=== PATIENT | male | born 1940 | race Caucasian/White ===

== ENCOUNTER 2016-06-27 12:57 | Inpatient (IN) | payer MEDICARE, OTHER ==
--- NOTE | ~2016-06-27 | OP ---
Record Of Operation [facility] [address] [place]. [address] NAME: SOM KAISER : 40 STATUS : ADM IN [facility]#: [id number] AGE: 75 ADM/REG DATE : 06/27/16 MR#: [id number] REPORT SERV DATE: 06/30/16 DICTATED BY: NEGIN TREJO DATE: 06/30/16 REPORT STATUS : Draft TRANSCRIBED BY: MODL DATE: 06/30/16 DATE OF PROCEDURE: 06/30/2016 PREOPERATIVE DIAGNOSIS: 1. Large pericardial effusion with tamponade physiology. 2. History of laryngeal carcinoma with recurrence. 3. New onset paroxysmal atrial fibrillation. PROCEDURE PERFORMED: Subxiphoid pericardial window with drainage of effusion. SURGEON: Negin Trejo M.D. CHIEF ENGINEERING DIVISION: Lubna Borden. ANESTHESIA: General. INDICATIONS: This is a 75-year-old gentleman with a history of oral cancer who has had 2 resections and radiation and chemotherapy with recurrence. He began having weakness and shortness of breath with ambulation. He started to have some pink-tinged sputum and was referred to [place] initially at the evaluation. He was admitted at that time and recently discharged to home. He was diagnosed with a pericardial effusion. Over the last several days, he has had increasing shortness of breath and was admitted to [facility] with cough, productive sputum and shortness of breath. CT scan performed last night demonstrated bilateral lower lobe pneumonia with large pericardial effusion. He underwent an echocardiogram that demonstrated a large pericardial effusion that was circumferential and had evidence of possible tamponade physiology. We were asked to see the patient for possible drainage of pericardial effusion. We discussed this operation with the patient and his family and they wished to proceed. FINDINGS AT OPERATION: 1. 380 mL of reddish but serous fluid around the heart. This was sent for cytology and cultures. 2. Given this is actually on the pericardium and surface of the heart. Pathologic specimens include pericardium and fluid for cytology and cultures. DESCRIPTION OF PROCEDURE: The patient was brought to the operating suite. General anesthesia was induced. Airway was secured with an endotracheal tube. Lines secured by Anesthesia. The patient's chest and abdomen were prepped with Hibiclens and ChloraPrep and draped with Ioban and sterile sheets. Then, the xiphoid area was anesthetized with TAP solution and an incision made directly over the xiphoid onto the linea alba for several centimeters. This was carried through the subcutaneous tissue and the linea alba divided in the midline up to the level of the costal margin. Left costal margin was elevated and we freed the subcutaneous tissue underneath the sternum and identified the pericardium. Pericardium was opened and 380 mL of serous mildly bloody fluid were obtained and this was sent for cultures and cytology. There was a fibrinous exudate on the surface of the heart Record Of Operation [address] [place]. [address] NAME: SOM KAISER : 40 STATUS : ADM IN PAT#: [id number] AGE: 75 ADM/REG DATE : 06/27/16 MR#: [id number] REPORT SERV DATE: 06/30/16 DICTATED BY: NEGIN TREJO DATE: 06/30/16 REPORT STATUS : Draft TRANSCRIBED BY: KHANG DATE: 06/30/16 and thickened pericardium. We then excised a large swath of the anterior pericardium. This was sent for pathology. Hemostasis was then assured and the pericardial space irrigated copiously with saline. A 24 Turkmen Robert drain was placed in the pericardial space posteriorly and brought out through a separate stab incision. Once hemostasis was assured, the midline incision was closed in layers of absorbable suture and skin closed in a subcuticular fashion. The patient tolerated the procedure well. There were no complications. Sponge and needle counts were correct. DISPOSITION: The patient was extubated and taken to the recovery room in stable condition. DOMENIC/KHANG Negin Trejo M.D. / [id number] CC: Nilesh Whittington M.D.
--- NOTE | ~2016-06-27 | HP ---
History And Physical [id number] [facility] [place]. [address] NAME: SOM PEREZ : 40 STATUS : ADM IN [facility]#: [id number] AGE: 75 ADM/REG DATE : 06/27/16 MR#: [id number] REPORT SERV DATE: 06/28/16 DICTATED BY: NEGIN GARCES DATE: 06/27/16 REPORT STATUS : Draft TRANSCRIBED BY: MODL DATE: 06/27/16 DATE OF ADMISSION: 06/27/2016 POINT OF ENTRY: [facility] Emergency Department. PRIMARY SHAKE BACKBOARD NOTCHER: Dr. Jin. PRIMARY FLY MAKER: Dr. Estrada. CHIEF COMPLAINT: Chest and back pain and weakness. HISTORY OF PRESENT ILLNESS: Mr. 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 Majority of history is obtained from the patient's family who was at bedside. Family states that the patient recently underwent recurrent resection of squamous cell cancer of the tongue at [facility] on 04/[address] Jin. There are no current plans for radiation therapy or chemotherapy, as he currently has poor functional status. They also report he was recently admitted to [facility] approximately two weeks ago for bilateral lower lobe pneumonia. Family states that he was doing well. Yesterday, he went to [place] to see his radiation oncologist and was able to walk around [place] without significant difficulty. Also, worked with Physical Therapy yesterday. Upon awakening today, the family noticed that the patient was extremely weak with also having increased cough and sputum production above his baseline and was complaining of some back and chest pain. He denies any fevers, night sweats, or chills. The patient recently saw Dr. Estrada and echocardiogram done for what sounds like a diagnosis of pericardial effusion while at [place]. Given that he was complaining of chest and back pain, they decided to come to [facility]. Initial evaluation in the emergency department is notable for a fever of 99.6, he was mildly tachycardic with a heart rate in the low 100s. [place] [address]. Chest x-ray was clear; however, CT of the chest was negative for PE, but does show bilateral lower lobe pneumonia as well as a 1.9 cm pericardial effusion and evidence of concern for mediastinitis. Labs were also notable for sodium of 125, potassium 5.3, but troponin was negative as was EKG. He was subsequently admitted to the Hospitalist Service for further evaluation and management. The patient also reports he was recently placed on Augmentin by his primary care physician on Wednesday for a white count of 16,000. At that time, he was not having any symptoms. Chest x-ray was done, but it was unremarkable and since starting Augmentin, the patient has also History And Physical [address] [place]. [address] NAME: SOM PEREZ : 40 STATUS : ADM IN [facility]#: [id number] AGE: 75 ADM/REG DATE : 06/27/16 MR#: [id number] REPORT SERV DATE: 06/28/16 DICTATED BY: NEGIN GARCES DATE: 06/27/16 REPORT STATUS : Draft TRANSCRIBED BY: KHANG DATE: 06/27/16 developed some diarrhea. COMPREHENSIVE REVIEW OF SYSTEMS: Otherwise negative unless listed in history present illness. PREVIOUS MEDICAL HISTORY: 1. Aggressive squamous cell carcinoma of the tongue, last known stage of stage II, status post resection as well as previous history of XRT. 2. Hypothyroidism. 3. Uiz-bhyoxfq-okvimhsff diabetes mellitus type 2. 4. Remote history of stroke. 5. Hyperlipidemia. 6. History of prostate cancer, status post brachytherapy. SURGICAL HISTORY: 1. Prostate brachytherapy. 2. Multiple excisions of squamous cell carcinoma of the tongue. 3. Right rotator cuff surgery. 4. Left elbow surgery. ALLERGIES: NO KNOWN DRUG ALLERGIES. HOME MEDICATIONS: 1. Augmentin 800 mg per tube b.i.d. 2. Aspirin 162 mg per tube q.6 hours p.r.n. 3. Klonopin 0.5 to 1 mg per tube b.i.d. 4. Plavix 75 mg per tube daily. 5. Pepcid 20 mg per tube b.i.d. 6. Fenofibrate 160 mg per tube q.h.s. 7. Neurontin 200 mg per tube b.i.d. 8. Mucinex 600 mg per tube q.12 p.r.n. 9. Levothyroxine 175 mcg per tube daily. 10.Metformin 1000 mg per tube b.i.d. 11.Multivitamin one tab per tube q.h.s. 12.Zofran 4 mg q.6 hours p.r.n. 13.Roxicodone 10 mg per tube q.6 hours p.r.n. 14.Paxil 10 mg per tube daily. 15.Aldactone 25 mg per tube daily. 16.Advil one tab q.h.s. p.r.n. 17.Silace 100 mg per tube b.i.d. 18.Ginseng one tab per tube daily. 19.Probiotic one tab per tube q.h.s. SOCIAL HISTORY: Denies any tobacco, alcohol, or illicits. Is a former smoker, quit greater than 40 years ago. FAMILY MEDICAL HISTORY: Mother with diabetes. Father with prostate cancer and coronary History And Physical [address] [address] NAME: SOM PEREZ : 40 STATUS : ADM IN PAT#: [id number] AGE: 75 ADM/REG DATE : 06/27/16 MR#: [id number] REPORT SERV DATE: 06/28/16 DICTATED BY: NEGIN GARCES DATE: 06/27/16 REPORT STATUS : Draft TRANSCRIBED BY: KHANG DATE: 06/27/16 artery disease. Siblings with colon cancer. LABS AND IMAGIN. White count 16.7, hemoglobin is 10.3, hematocrit is 30.9, platelet count 356. 2. Sodium is 125, potassium 5.3, chloride 91, carbon dioxide 30, BUN 35, creatinine 1.25, glucose is 191, calcium is 9.4, magnesium is 1.8. 3. Troponin less than 0.02. 4. Urinalysis, specific gravity is 1.016. No evidence of any infection. 5. Chest x-ray per my review shows no acute cardiopulmonary abnormality. 6. CT of the chest shows no PE, just shows some changes concerning for mediastinitis as well as bilateral lower lobe pneumonia and a 1.9 cm pericardial effusion. Of note, this is overnight virtual radiology read. Formal radiology report will need to be followed up in the morning. 7. EKG per my review shows sinus tachycardia with no evidence of any acute ischemic infarction. There are some mildly prominent T-waves V3 through V4. 8. The patient had an echocardiogram done on 06/26/2016, which showed ejection fraction 59% as well as some diastolic dysfunction, but report actually states no pericardial effusion at that time. PHYSICAL EXAMINATION: VITAL SIGNS: Temperature is 99.6 degrees Fahrenheit, pulse is 105, respirations 16, saturating 98% on room air, blood pressure 100/64. On recheck, blood pressure now 117/66, pulse of 114, saturating 95% on room air. GENERAL: The patient is awake, alert, in no acute distress, resting comfortably. He is a chronically ill-appearing elderly male. Multiple family members are at bedside. HEENT: Atraumatic and normocephalic. Slightly dry mucous membranes. Pupils are equal, round, reactive to light and accommodation. Extraocular eye movements intact. NECK: No jugular venous distention. No carotid bruits. CARDIAC: Tachycardic rate, regular rhythm. No murmurs, rubs, or gallops. Normal S1, S2. LUNGS: On room air in no respiratory distress. Does have some decreased breath sounds in the bases, but I do not appreciate any wheezes, rhonchi, or crackles. ABDOMEN: PEG tube is in place. No rebound, guarding, or rigidity. Hypoactive bowel sounds throughout. EXTREMITIES: Warm and well perfused. No cyanosis, clubbing, or edema. SKIN: Warm and dry. PSYCH: Affect appropriate. NEURO: Alert and oriented x3. Cranial nerves 2 through 12 grossly intact. Speech is dysarthric and muffled secondary to tongue surgery. Gait was not assessed. ASSESSMENT AND PLAN: Mr. Perez is a 75-year-old gentleman with history of squamous cell carcinoma of the tongue, status post resection with resulting oropharyngeal dysphagia requiring PEG tube, who presents to the emergency department today with reports of cough, sputum production, weakness, back and chest pain, and found to have evidence of bilateral lower lobe pneumonia. PROBLEM LIST: 1. Bilateral lower lobe pneumonia, concern for aspiration versus healthcare-associated History And Physical [address] [address] NAME: SOM PEREZ : 40 STATUS : ADM IN PAT#: [id number] AGE: 75 ADM/REG DATE : 06/27/16 MR#: [id number] REPORT SERV DATE: 06/28/16 DICTATED BY: NEGIN GARCES DATE: 06/27/16 REPORT STATUS : Draft TRANSCRIBED BY: MODYanely DATE: 06/27/16 pneumonia. 2. Sepsis. 3. Hyperkalemia. 4. Hyponatremia. 5. Acute kidney injury and dehydration. 6. Squamous cell carcinoma of the tongue. 7. Oropharyngeal dysphagia. 8. Diarrhea. 9. Concern for mediastinitis on CT scan. PLAN: 1. Bilateral lobe pneumonia. Given the patient's recent hospitalization and surgery as well as oropharyngeal dysphagia, he is at risk for either aspiration pneumonia versus HCAP. As such, we will treat with IV cefepime, vancomycin, and Flagyl. Follow up blood cultures. Try to obtain sputum culture as well as urinary antigens. Try to obtain records from [facility], as he was just hospitalized two weeks ago for what sounds to be very similar circumstances. 2. Sepsis. The patient meets criteria with leukocytosis as well as tachycardia. Lactic acid is pending as is procalcitonin. Follow up blood cultures. Aggressive IV fluid hydration and antibiotics. 3. Hyperkalemia. No acute T-wave changes at this time. We will continue to monitor. Holding the patient's Aldactone. Aggressive IV fluid hydration. We will order some calcium gluconate. We will hold off on Kayexalate given preexisting diarrhea. 4. Hyponatremia. It sounds as if the patient has some chronic hyponatremia in the past. He does receive free water flushes per tube, so he may be receiving too much free water. We will hold his free water flushes at least overnight. Provide IV fluid hydration with normal saline. Checking thyroid function studies as well as urine lytes for further workup. 5. Acute kidney injury and dehydration. Provide aggressive IV fluid hydration. Holding Aldactone. 6. Diarrhea. The patient has been on antibiotics recently. We will check C diff, PCR, as well stool culture and ova and parasite. 7. Oropharyngeal dysphagia. The patient is strict n.p.o. and receives everything by PEG tube. We will consult Nutrition for assistance with nutrition per PEG tube per family request. We will also consult Speech Therapy to better evaluate the patient's oropharyngeal dysphagia and aspiration risk. 8. Squamous cell carcinoma of the tongue. Try to obtain records from [facility] per Otolaryngology. 9. Concern for mediastinitis. We will consult Pulmonology for assistance to review CT imaging. The patient has not had any recent chemotherapy or radiation to the thorax. It is unclear as to what may be causing these changes. 10.DVT prophylaxis. Lovenox subcu. 11.Code status. The patient wished to be DNR/DNI. JCB/MODL History And Physical [address] [address] NAME: SOM PEREZ : 40 STATUS : ADM IN [facility]#: [id number] AGE: 75 ADM/REG DATE : 06/27/16 MR#: [id number] REPORT SERV DATE: 06/28/16 DICTATED BY: NEGIN GARCES DATE: 06/27/16 REPORT STATUS : Draft TRANSCRIBED BY: KHANG DATE: 06/27/16 Negin Garces MD / [id number] CC: Esther Claire M.D. Aarti Paul M.D. Joseph Powers, M.D.
--- NOTE | ~2016-06-27 | CN ---
Consultation Report [facility] [address] [place]. [address] NAME: SOM PEREZ : 40 STATUS : ADM IN [facility]#: [id number] AGE: 75 ADM/REG DATE : 06/27/16 MR#: [id number] REPORT SERV DATE: 06/29/16 DICTATED BY: ALMA EASON DATE: 06/28/16 REPORT STATUS : Draft TRANSCRIBED BY: MODYanely DATE: 06/28/16 CARDIOLOGY CONSULTATION NOTE DATE OF CONSULTATION: 06/28/2016 REASON FOR CONSULTATION: Pericardial effusion by CT scan. HISTORY OF PRESENT ILLNESS: Mr. Perez is a pleasant 75-year-old man with a history of progressive laryngeal cancer. The patient has been followed at [facility] for this condition. He is status post recent resection of his cancer by Dr. Jin in April 2016. The patient apparently had stage II disease colon. Radiation therapy and/or chemotherapy would ordinarily be indicated, but the patient was felt not to be a candidate for this due to severe deconditioning/malnutrition. The patient therefore is being monitored. The family reports the patient was told that he has a very aggressive form of cancer. The patient was in his usual state of health until approximately 06/26/2016. The patient had been seen by Dr. Estrada recently for evaluation of a pericardial effusion, which had been diagnosed at [facility] in April. The patient was having a substernal chest pain. Because of his symptom of chest pain, he decided to present to [facility] emergency room. A CT scan of the chest was performed. This did show a pericardial effusion with a maximal diameter of approximately 1.9 cm. Also, the CT scan was concerning for bilateral pneumonia and multiple pulmonary nodules. At this time, the patient reports his chest pain has resolved. He reports that it was a dull pain with radiation through to the back. He denies any dyspnea or orthopnea at this time. PAST MEDICAL HISTORY: 1. Aggressive laryngeal cancer as noted above-stage II status post previous history of radiation therapy and surgical treatment. 2. Hypothyroidism. 3. Type 2 diabetes. 4. Remote history of stroke. 5. Dyslipidemia. 6. History of prostate cancer, status post brachytherapy. PAST SURGICAL HISTORY: Significant for brachytherapy, multiple excisions of squamous cell cancer of the tongue, right rotator cuff surgery, and left elbow surgery. FAMILY HISTORY: Significant for prostate cancer in the patient's father. The patient's father also had coronary artery disease. One of the patient's siblings has been diagnosed with colon cancer. SOCIAL HISTORY: The patient quit smoking more than 40 years ago. He has no recent history of tobacco, alcohol, or drug use. Consultation Report [id number] [place]. [address] NAME: SOM PEREZ : 40 STATUS : ADM IN PAT#: [id number] AGE: 75 ADM/REG DATE : 06/27/16 MR#: [id number] REPORT SERV DATE: 06/29/16 DICTATED BY: ALMA EASON DATE: 06/28/16 REPORT STATUS : Draft TRANSCRIBED BY: KHANG DATE: 06/28/16 ALLERGIES: THE PATIENT HAS NO KNOWN MEDICATION ALLERGIES. HOME MEDICATIONS: 1. Augmentin 800 mg per NG tube twice daily. 2. Aspirin 162 mg per PEG tube daily. 3. Klonopin 0.5-1 mg b.i.d. per PEG tube. 4. Plavix 75 mg per PEG tube daily. 5. Plavix 20 mg per tube twice daily. 6. Fenofibrate 160 mg per tube q.h.s. 7. Neurontin 200 mg per tube twice daily. 8. Mucinex 600 mg p.o. q.12 hours as needed. 9. Levothyroxine 175 mcg daily. 10.Metformin 1 g p.o. twice daily. 11.Multivitamin one tablet daily. 12.Zofran 4 mg q.6 hours p.r.n. 13.Roxicodone 10 mg per tube q.6 hours as needed for pain. 14.Paxil 10 mg p.o. daily. 15.Aldactone 25 mg daily. 16.Advil p.r.n. pain. 17.Silace 100 mg per tube twice daily. 18.Ginseng supplement one tablet daily. 19.Probiotic supplement one tablet daily. REVIEW OF SYSTEMS: A complete 12-system review was performed. This is noncontributory, except for the pertinent positives and negatives noted in the history of present illness above. Additionally, the patient is noted to be DNR/DNI status. PHYSICAL EXAMINATION: VITAL SIGNS: Current temperature is 99.6 degrees Fahrenheit, blood pressure is currently 96/68 mmHg, heart rate is presently 95 beats per minute and regular, respirations 14, and oxygen saturation is 96% on room air. CONSTITUTIONAL: The patient is a frail, elderly white man, in no acute distress. HEAD, EARS, NOSE, THROAT: The patient has multiple surgical scars noted from his surgeries. No evidence of acute cranial trauma. NECK: Supple with no obvious thyromegaly or lymphadenopathy. CARDIOVASCULAR: Heart sounds are distant. There is a regular rhythm with a normal S1 and a physiologically split second heart sound. No significant murmurs, rubs, or gallops are noted. The jugular venous pressure is normal at 6 cm, with no evidence of significant distention or respiratory abnormalities. PULMONARY: There are scattered rales noted throughout the lower lung robison bilaterally. There is no dullness to percussion at this time. ABDOMINAL: A PEG tube is in place and appears clean, dry, and intact. The abdomen is soft, nontender, and nondistended with no gross organomegaly noted. Consultation Report [address] [place]. [address] NAME: SOM PEREZ : 40 STATUS : ADM IN PAT#: [id number] AGE: 75 ADM/REG DATE : 06/27/16 MR#: [id number] REPORT SERV DATE: 06/29/16 DICTATED BY: ALMA EASON DATE: 06/28/16 REPORT STATUS : Draft TRANSCRIBED BY: KHANG DATE: 06/28/16 EXTREMITIES: There is trace ankle edema with no significant clubbing or cyanosis. MUSCULOSKELETAL: Grossly normal strength and range of motion in all extremities. INTEGUMENTARY: Skin appears intact with no bruises, wounds, or active lesions noted. NEURO/PSYC: Alert and oriented x3 with no dysarthria, facial droop or lateralizing weakness noted. DIAGNOSTIC STUDIES: A 12-lead EKG: The 12-lead EKG shows sinus tachycardia with a rate of 106 beats per minute. There is low voltage in the limb leads. There are no significant ST/T-wave abnormalities. LABORATORY DATA: Myocardial infarction has been ruled out. Labs are significant for hyponatremia with a serum sodium of 125, potassium is 5.3, chloride is 91, BUN 35, creatinine is 1.25, glucose 191, calcium 9.4, magnesium 1.8. Cell count show a white blood cell count of 16.7, hemoglobin 10, hematocrit 31, platelets 356. INR is 1.2. Troponin I is less than 0.02 and TSH is 0.025. ASSESSMENT AND PLAN: Pericardial effusion: This apparently has been present for several days. The patient had a recent echocardiogram according to the family performed at Dr. Estrada' office. An official report is not available, but apparently this showed no evidence of cardiac tamponade. A repeat echocardiogram will be obtained tomorrow morning. At this time, the patient has no specific physical exam findings of cardiac tamponade. He is breathing easily, with no chest pain, and no jugular venous distention. His blood pressure while low is stable. The Cardiology Service will continue to follow the patient. I will make further recommendations regarding workup of the pericardial effusion after completion of the patient's echocardiogram. The patient does have the concerning finding of multiple pulmonary nodules on his CT scan of the chest. It may be necessary to perform pericardiocentesis or possibly diagnostic thoracentesis to exclude the possibility of a malignant effusion. Thank you for allowing me to participate in the care of Mr. Perez. The Cardiology Service will continue to follow the patient closely during this hospitalization. [facility]/KHANG Alma Eason MD / [id number] CC: Consultation Report [address] [address] NAME: SOM PEREZ : 40 STATUS : ADM IN [facility]#: [id number] AGE: 75 ADM/REG DATE : 06/27/16 MR#: [id number] REPORT SERV DATE: 06/29/16 DICTATED BY: ALMA EASON DATE: 06/28/16 REPORT STATUS : Draft TRANSCRIBED BY: MTL DATE: 06/28/16 Esther Claire M.D.
--- NOTE | ~2016-06-27 | CN ---
Consultation Report [facility] [address] [place]. [address] NAME: SOM PEREZ : 40 STATUS : ADM IN PAT#: [id number] AGE: 75 ADM/REG DATE : 06/27/16 MR#: [id number] REPORT SERV DATE: 06/28/16 DICTATED BY: ELENA BOSE DATE: 06/28/16 REPORT STATUS : Draft TRANSCRIBED BY: MODL DATE: 06/28/16 CONSULTATION DATE OF CONSULTATION: Dear Dr. Tino Cheatham: Thank you for requesting my opinion regarding evaluation and management of Mr. Som Perez's shortness of breath and bilateral infiltrates. Mr. 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 Stefano Jin; hypothyroidism; ulw-knewcnj-cuwsgjavo diabetes type 2; and history of stroke, who presents to [facility] with worsening shortness of breath, cough, and sputum production. The patient has notable history of having a PEG placed. He had recently seen his family doctor as well as went to [place] with worsening symptoms of shortness of breath. He had multiple chest x-rays that demonstrated clear lungs, but here at [facility], demonstrated a fever of 99.[address] scan of the chest that was negative for PE, but demonstrated bilateral lower lobe pneumonia as well as a 1.9-cm pericardial effusion and concern for mediastinitis. The concern for mediastinitis was less so on the final read and the report has been amended as such. The patient was recently placed on Augmentin by [place] [phone] when he had a clear chest x-ray. He states that his symptoms have modestly improved during his hospitalization. He continues to have mild shortness of breath, well localized to the chest, nonradiating, with no significant alleviating or exacerbating factors. The patient's history is somewhat limited due to his surgical intervention and his inability to be able to clearly speak, but his helped assist with the history. REVIEW OF SYSTEMS: A detailed 14-point review of systems was completed. Pertinent positives and negatives are listed above. PAST MEDICAL HISTORY: 1. Aggressive squamous cell carcinoma of the tongue, last known stage of II, status post resection as well as a previous history of radiation therapy. 2. Hypothyroidism. 3. Erf-wbnvphc-cwwfiwwhk diabetes mellitus, type 2. 4. History of stroke. 5. Hyperlipidemia. 6. Prostate cancer, status post brachytherapy. PAST SURGICAL HISTORY: 1. Prostate brachytherapy. 2. Multiple excisions of squamous cell carcinoma of the tongue. 3. Right rotator cuff surgery. 4. Left elbow surgery. Consultation Report [address] [place]. [address] NAME: SOM PEREZ : 40 STATUS : ADM IN PAT#: [id number] AGE: 75 ADM/REG DATE : 06/27/16 MR#: [id number] REPORT SERV DATE: 06/28/16 DICTATED BY: ELENA BOSE DATE: 06/28/16 REPORT STATUS : Draft TRANSCRIBED BY: KHANG DATE: 06/28/16 ALLERGIES: NO KNOWN DRUG ALLERGIES. HOME MEDICATIONS: Reviewed and located in the paper chart. SOCIAL HISTORY: The patient denies any current history of tobacco, alcohol, or illicit drug abuse. He quit greater than 40 years ago in 1975. FAMILY HISTORY: Diabetes, prostate cancer, coronary artery disease, and siblings with colon cancer. PHYSICAL EXAMINATION: VITAL SIGNS: Afebrile, T-current of 96.8, pulse of 80, respiratory rate of 20, room air 98%, blood pressure of 93/61. GENERAL: No acute distress. HEENT: Normocephalic. The patient has multiple scars related to his prior ENT surgery. His posterior oropharynx is abnormal status post tongue resection, small os. NECK: No JVD. No LAD. Trachea midline. CARDIOVASCULAR: Regular rate and rhythm. S1 and S2 present. LUNGS: Coarse bilateral breath sounds, especially at the bases. ABDOMEN: Nontender. Nondistended. Soft. Positive bowel sounds. EXTREMITIES: No clubbing, cyanosis, or edema. SKIN: No new rashes, lesions, or ulcers. PSYCHIATRIC: Alert and oriented x3. Appropriate mood and affect. Appropriate insight and judgment. NEUROLOGIC: 5/5 strength in upper and lower extremities. Cranial nerves II through XII intact. Gait not tested. DTRs not performed. LABORATORY DATA: White count of 16 down to 11. Procalcitonin 0.34. Sodium improved from 125 to 130. Creatinine of 0.88. Urine Legionella negative. UA negative. Respiratory culture in progress. IMAGING: Chest CT on 06/27/2016 was personally reviewed by me. I agree with the following interpretation: 1. Bilateral lower lobe pneumonia with trace bilateral pleural effusions and pericardial effusion. 2. Normal aorta. 3. No evidence of pulmonary embolism. 4. Noncalcified left lower lobe and right upper lobe pulmonary nodules. Recommend followup CT scan in 12 months to a year to complete 2-year cycle of surveillance. The patient will likely need repeat imaging sooner than that given his history of pneumonia and malignancy. Echocardiogram has been ordered and pending. Consultation Report [facility] [id number] [place]. [address] NAME: SOM PEREZ : 40 STATUS : ADM IN [facility]#: [id number] AGE: 75 ADM/REG DATE : 06/27/16 MR#: [id number] REPORT SERV DATE: 06/28/16 DICTATED BY: ELENA BOSE DATE: 06/28/16 REPORT STATUS : Draft TRANSCRIBED BY: KHANG DATE: 06/28/16 ASSESSMENT AND PLAN: Mr. Som Perez is a pleasant 75-year-old gentleman with a significant past medical history of squamous cell carcinoma of the tongue, status post radiation therapy and reoperation in April 2016; type 2 diabetes; stroke; remote history of tobacco abuse, who presents with worsening symptoms of shortness of breath; cough; and sputum production. The patient also has associated symptoms of low-grade fevers. CT scan of the chest personally reviewed by me on 06/27/2016 demonstrates bilateral lower leg edema as well as small bilateral pleural effusions as well as pericardial effusion. Noncalcified left lower lobe and right upper lobe pulmonary nodules are noted. The clinical and radiographic presentation is most consistent with multifactorial shortness of breath including the followin. Deconditioning. 2. Bilateral aspiration pneumonia versus health care associated pneumonia. 3. High risk for aspiration, status post multiple oropharyngeal surgeries for laryngeal carcinoma and radiation therapy with poor os opening. The patient is status post PEG placement. RECOMMENDATIONS: A summary of my recommendations is as follows: 1. Continue vancomycin, cefepime, and Flagyl. 2. Aspiration precautions. 3. Could consider PEJ placement. 4. Consider GI consultation. 5. Appropriate for palliative care consultation to address code status. 6. Add bronchodilator therapy including Brovana, Pulmicort, and DuoNeb scheduled and p.r.n. 7. No evidence of mediastinitis on the final read. Thank you for allowing me to participate in Mr. Som Perez's care. Sincerely, JESSICA/KHANG Elena Bose M.D. / [id number] CC: Esther Claire M.D.
--- NOTE | ~2016-06-27 | DS ---
Discharge Summary [facility] [address] [place]. [address] NAME: SOM KAISER : 40 STATUS : DIS IN PAT#: [id number] AGE: 75 ADM/REG DATE : 06/27/16 MR#: [id number] REPORT SERV DATE: 07/05/16 DICTATED BY: SEPIDEH QUINTERO DATE: 07/04/16 REPORT STATUS : Draft TRANSCRIBED BY: MODL DATE: 07/04/16 ADMISSION DATE: 06/27/2016 DISCHARGE DATE: 07/04/2016 CONSULTANTS: 1. [facility] with Leonidas Tatum. 2. Cardiology, Dr. Eason. 3. Pulmonary, Dr. Lopez. FINAL DIAGNOSES: 1. Status post window for pericardial effusion, bilateral pneumonia, possible aspiration versus HCAP. 2. Tongue CA with PEG. 3. Diabetes. 4. PAF. 5. Hypertension. 6. Hypothyroidism. 7. Status post hyponatremia. DIAGNOSTIC EXAMS: Chest x-ray on admission showing no acute cardiopulmonary abnormality. CTA of the chest showing bilateral lower lobe pneumonia with trace bilateral pleural effusion and pericardial effusion. Normal aorta, no evidence of pulmonary embolus, noncalcified left lower lobe, right upper lobe pulmonary nodule. Followup CT in 12 months to complete a 2-year cycle of surveillance. Lumbar spine x-ray showing multiple level degenerative disc changes, facet arthropathy, no acute lumbar spine abnormality. Echocardiogram showing normal left ventricular size with borderline left ventricular systolic function. EF of 50% to 55%. Moderate to severe circumferential pericardial effusion with early signs of hemodynamic compromise. Borderline signs of tamponade. Repeat chest x-ray showing bilateral atelectasis with small bilateral pleural effusion, interval placement of mediastinal drain with small volume of pneumomediastinum, evidence of old granulomatous disease. HOSPITAL COURSE: Please refer to the H and P done by Dr. Cheatham dated on 06/27/2016. Briefly, this is a 75-year-old male with squamous cell carcinoma of the tongue, history of surgery and RT, being followed by Dr. Jin. The patient presented with multiple complaints including chest pain and back pain. The patient was then admitted by Dr. Cheatham. Workup revealed that the patient has pericardial effusion and pneumonia. He was given antibiotics, completed the therapy, and did well. However, we are worried about the pericardial effusion. We got Cardiology involved and also [facility]. Dr. Trejo did a subxiphoid pericardial window and drainage of effusion. The patient did well and the drain was pulled out, and he did fine and the chest pain went away. Meanwhile, he went to rapid atrial fibrillation and we adjusted the medications and on discharge, the patient is in normal sinus rhythm. The Cardiology left a note to consider Eliquis for three months; however, with the recent pericardial window, I would defer that to their outpatient doctors and if the patient is unstable, the patient would probably need the Eliquis. The patient will follow up with his PCP, Dr. Chivo Corbin in one to two weeks; [facility], Leonidas Tatum in three Discharge Summary [address] [address] NAME: SOM KAISER : 40 STATUS : DIS IN PAT#: [id number] AGE: 75 ADM/REG DATE : 06/27/16 MR#: [id number] REPORT SERV DATE: 07/05/16 DICTATED BY: SEPIDEH QUINTERO. DATE: 07/04/16 REPORT STATUS : Draft TRANSCRIBED BY: KHANG DATE: 07/04/16 weeks; Cardiology, Dr. Estrada in month; ENT Dr. Jin as previously scheduled. This has been explained to the patient in front of the . They agreed and understood the plan. HOME MEDS: Would be Plavix 75 mg a day, Pepcid 20 mg twice a day, low-fiber 160 mg a day, gabapentin 200 mg twice a day, Mucinex p.r.n., Synthroid down to 150 mcg a day, multivitamin once a day, Lopressor 50 mg twice a day, Paxil 10 mg a day, Klonopin 0.5 mg p.r.n., metformin 1000 mg twice a day, Advil p.r.n., Roxicodone 10 mg q.6 hours p.r.n., and probiotic 1 capsule a day. KIT/KHANG Sepideh Quintero M.D. / [id number] CC: Sepideh Quintero M.D. Aarti Paul M.D.
[~2016-06-27 12:57] MED LIST: CYMBALTA60 PO; GLUCOPHAGE1000 MG PO; KLOR-CON 1010 MEQ PO; L20 PO; LEVEMFLXPN SC; LEVOTHYROXIN175 MCG PO; LORTAB 5 PO; NEUR100 PO; NORCO1 TAB PO; PLAVIX PO; PRIN10 PO; PROTONIX PO; TRICOR145 PO
[2016-06-27 14:44] LABS: BASOPHILS 0.2 %; BASOPHILS ABSOLUTE 0.04 10/3/uL (0.0-0.16); EOSINOPHILS 0.3 %; EOSINOPHILS ABSOLUTE 0.05 10/3/uL (0.0-0.53); HEMATOCRIT 30.9 % (40.0-51.0); HEMOGLOBIN 10.3 g/dL (13.6-17.8); IMMATURE GRANULOCYTES 0.5 %; IMMATURE GRANULOCYTES ABSOLUTE 0.08 10/3/uL (0.0-0.11); LYMPHOCYTES 11.6 %; LYMPHOCYTES ABSOLUTE 1.95 10/3/uL (0.67-4.30); MEAN CORPUS HGB CONC 33.3 g/dL (32.0-36.0); MEAN CORPUSCULAR HEMOGLOB 26.6 pg (26.0-34.0); MEAN PLATELET VOLUME 9.7 fL (9.2-13.0); MONOCYTES 13.5 %; MONOCYTES ABSOLUTE 2.26 10/3/uL (0.21-1.20); NEUTROPHILS 73.9 %; NEUTROPHILS ABSOLUTE 12.36 10/3/uL (2.02-8.40); RBC DISTRIBUTION WIDTH 15.4 % (12.0-16.0); RED CELL COUNT 3.87 10/6/uL (4.7-6.1)
[2016-06-27 14:46] LABS: ER CBC TAT 0 Hrs 07 Mins; MANUAL DIFF NO %; MEAN CORPUSCULAR VOLUME 79.8 fL (80-100); PLATELET COUNT 356 10/3/uL (150-400); WHITE BLOOD CELLS 16.7 10/3/uL (4.5-10.5)
[2016-06-27 14:52] LABS: INTERNATIONAL NORMAL RATI 1.2 UNITS (-); PARTIAL THROMBO TIME 40.1 SEC (22.5-37.2)
[2016-06-27 14:59] LABS: CHEST PAIN PROFILE TAT 0 Hrs 20 Mins; CO2 (CARBON DIOXIDE) 30 MMOL/L (24-34); CREATININE 1.25 MG/DL (0.70-1.30); GFR AFRICAN AMERICAN 65 ML/MIN (>=60); GFR NON AFRICAN AMERICAN 56 ML/MIN (>=60); TROPONIN I <0.02 NG/ML (<0.05)
[2016-06-27 15:02] LABS: BUN (BLOOD UREA NITROGEN) 35 MG/DL (6-23); CALCIUM, SERUM 9.4 MG/DL (8.5-10.4); CHLORIDE, SERUM 91 MMOL/L (96-112); GLUCOSE, SERUM 191 MG/DL (60-99); POTASSIUM, SERUM 5.3 MMOL/L (3.5-5.3); SODIUM, SERUM 125 MMOL/L (135-148)
[2016-06-27 16:42] LABS: PROCALCITONIN 0.33 ng/mL (<0.5)
[2016-06-27 17:55] LABS: ASCORBIC ACID (UR NOT ORDER) 40 (NEG); BILIRUBIN, URINE NEGATIVE (NEG); ER URINALYSIS TAT 0 Hrs 10 Mins; KETONE, URINE NEGATIVE (NEG); LEUKOCYTE ESTERASE(NOT OR NEG (NEG); NITRITE (URINE) NEG (NEG); WBC (NOT ORDERED) (RFLEX) 1 (0-5)
[2016-06-27] MEDS ORDERED: SPIRO25 PEG (19:10)
[2016-06-27] MEDS ORDERED: KLONO1 PEG (19:10)
[2016-06-27] MEDS ORDERED: PLAVIX PEG (19:11)
[2016-06-27] MEDS ORDERED: LEVOTHYROXIN175 MCG PEG (19:11)
[2016-06-27] MEDS ORDERED: PAX10 PEG (19:11)
[2016-06-27] MEDS ORDERED: AUGMEN400S PEG (19:12)
[2016-06-27] MEDS ORDERED: NEUR100 PEG (19:12)
[2016-06-27] MEDS ORDERED: GLUCOPHAGE1000 MG PEG (19:13)
[2016-06-27] MEDS ORDERED: ZOFRAN4 PEG (19:13)
[2016-06-27] MEDS ORDERED: LOFIB160 PEG (19:13)
[2016-06-27] MEDS ORDERED: PEP20 PEG (19:13)
[2016-06-27] MEDS ORDERED: MULTIVIT/MIN PEG (19:14)
[2016-06-27] MEDS ORDERED: MUCINEX DM TABLET PEG (19:14)
[2016-06-27] MEDS ORDERED: ADVIL PM PEG (19:14)
[2016-06-27] MEDS ORDERED: OXYCCODUDL PEG (19:15)
[2016-06-27] MEDS ORDERED: SILACE PEG (19:16)
[2016-06-27] MEDS ORDERED: ASAB PEG (19:16)
[2016-06-27] MEDS ORDERED: GINSENG PEG (19:17)
[2016-06-27 20:37] LABS: LACTATE 2.1 MMOL/L (0.3-2.4)
[2016-06-27 21:06] LABS: PROCALCITONIN 0.34 ng/mL (<0.5)
[2016-06-27 22:12] LABS: FREE T4 2.2 NG/DL (0.76-1.46); ULTRASENSITIVE TSH 0.025 MCIU/ML (0.358-3.740)
[2016-06-27 22:29] LABS: CREATININE, URINE 72.6 MG/DL
[2016-06-28 06:59] LABS: BASOPHILS 0.4 %; BASOPHILS ABSOLUTE 0.04 10/3/uL (0.0-0.16); EOSINOPHILS 1.3 %; EOSINOPHILS ABSOLUTE 0.14 10/3/uL (0.0-0.53); HEMATOCRIT 28.1 % (40.0-51.0); HEMOGLOBIN 9.6 g/dL (13.6-17.8); IMMATURE GRANULOCYTES 0.4 %; IMMATURE GRANULOCYTES ABSOLUTE 0.04 10/3/uL (0.0-0.11); LYMPHOCYTES 19.1 %; LYMPHOCYTES ABSOLUTE 2.14 10/3/uL (0.67-4.30); MEAN CORPUS HGB CONC 34.2 g/dL (32.0-36.0); MEAN CORPUSCULAR HEMOGLOB 27.2 pg (26.0-34.0); MEAN CORPUSCULAR VOLUME 79.6 fL (80-100); MEAN PLATELET VOLUME 9.5 fL (9.2-13.0); MONOCYTES 18.7 %; MONOCYTES ABSOLUTE 2.09 10/3/uL (0.21-1.20); NEUTROPHILS 60.1 %; NEUTROPHILS ABSOLUTE 6.73 10/3/uL (2.02-8.40); PLATELET COUNT 273 10/3/uL (150-400); RBC DISTRIBUTION WIDTH 15.2 % (12.0-16.0); RED CELL COUNT 3.53 10/6/uL (4.7-6.1); WHITE BLOOD CELLS 11.2 10/3/uL (4.5-10.5)
[2016-06-28 07:00] LABS: MANUAL DIFF NO %
[2016-06-28 07:37] LABS: CALCIUM, SERUM 8.9 MG/DL (8.5-10.4); CHLORIDE, SERUM 98 MMOL/L (96-112); CREATININE 0.88 MG/DL (0.70-1.30); GFR AFRICAN AMERICAN 97 ML/MIN (>=60); GFR NON AFRICAN AMERICAN 84 ML/MIN (>=60); GLUCOSE, SERUM 186 MG/DL (60-99); PREALBUMIN 10.1 MG/DL (17.0-43.0); SODIUM, SERUM 130 MMOL/L (135-148); TROPONIN I <0.02 NG/ML (<0.05)
[2016-06-28 07:39] LABS: BUN (BLOOD UREA NITROGEN) 19 MG/DL (6-23); CO2 (CARBON DIOXIDE) 25 MMOL/L (24-34)
[2016-06-28 12:58] LABS: % IRON SAT 9 % (20-50); FERRITIN 135 NG/ML (26-388); FOLATE 48.2 NG/ML (>5.2); IRON BINDING CAPACITY 267 MCG/DL (250-450); IRON, SERUM 25 MCG/DL (35-150)
[2016-06-28 19:46] LABS: ASCORBIC ACID (UR NOT ORDER) 40 (NEG); BILIRUBIN, URINE NEGATIVE (NEG); KETONE, URINE NEGATIVE (NEG); LEUKOCYTE ESTERASE(NOT OR NEG (NEG); WBC (NOT ORDERED) (RFLEX) < 1 (0-5)
[2016-06-29 05:16] LABS: BASOPHILS 0.3 %; BASOPHILS ABSOLUTE 0.03 10/3/uL (0.0-0.16); EOSINOPHILS 1.7 %; EOSINOPHILS ABSOLUTE 0.15 10/3/uL (0.0-0.53); HEMATOCRIT 27.3 % (40.0-51.0); HEMOGLOBIN 9.2 g/dL (13.6-17.8); IMMATURE GRANULOCYTES 0.9 %; IMMATURE GRANULOCYTES ABSOLUTE 0.08 10/3/uL (0.0-0.11); LYMPHOCYTES 19.3 %; LYMPHOCYTES ABSOLUTE 1.75 10/3/uL (0.67-4.30); MEAN CORPUS HGB CONC 33.7 g/dL (32.0-36.0); MEAN CORPUSCULAR HEMOGLOB 26.8 pg (26.0-34.0); MEAN CORPUSCULAR VOLUME 79.6 fL (80-100); MEAN PLATELET VOLUME 9.5 fL (9.2-13.0); MONOCYTES 11.3 %; MONOCYTES ABSOLUTE 1.02 10/3/uL (0.21-1.20); NEUTROPHILS 66.5 %; NEUTROPHILS ABSOLUTE 6.02 10/3/uL (2.02-8.40); PLATELET COUNT 266 10/3/uL (150-400); RBC DISTRIBUTION WIDTH 15.4 % (12.0-16.0); RED CELL COUNT 3.43 10/6/uL (4.7-6.1); WHITE BLOOD CELLS 9.1 10/3/uL (4.5-10.5)
[2016-06-29 05:23] LABS: MANUAL DIFF NO %
[2016-06-29 05:43] LABS: A/G RATIO 0.6 (0.7-1.9); ALBUMIN 2.2 G/DL (3.5-5.0); ALKALINE PHOSPHATASE 98 U/L (45-117); BUN (BLOOD UREA NITROGEN) 16 MG/DL (6-23); CALCIUM, SERUM 8.9 MG/DL (8.5-10.4); CHLORIDE, SERUM 97 MMOL/L (96-112); CO2 (CARBON DIOXIDE) 26 MMOL/L (24-34); CREATININE 0.84 MG/DL (0.70-1.30); GFR AFRICAN AMERICAN 99 ML/MIN (>=60); GFR NON AFRICAN AMERICAN 86 ML/MIN (>=60); GLOBULIN 3.6 G/DL (2.5-4.1); SGOT(AST) 28 U/L (5-40); SGPT(ALT) 39 U/L (5-65); SODIUM, SERUM 131 MMOL/L (135-148); TOTAL BILIRUBIN 0.2 MG/DL (0-1.2); TOTAL PROTEIN 5.8 G/DL (6.0-8.5)
[2016-06-29 05:44] LABS: GLUCOSE, SERUM 268 MG/DL (60-99)
[2016-06-30 06:49] LABS: BASOPHILS 0.3 %; BASOPHILS ABSOLUTE 0.03 10/3/uL (0.0-0.16); EOSINOPHILS 2.4 %; EOSINOPHILS ABSOLUTE 0.21 10/3/uL (0.0-0.53); HEMOGLOBIN 9.1 g/dL (13.6-17.8); IMMATURE GRANULOCYTES 0.8 %; IMMATURE GRANULOCYTES ABSOLUTE 0.07 10/3/uL (0.0-0.11); LYMPHOCYTES 11.3 %; MEAN CORPUS HGB CONC 33.7 g/dL (32.0-36.0); MEAN CORPUSCULAR HEMOGLOB 26.7 pg (26.0-34.0); MEAN CORPUSCULAR VOLUME 79.2 fL (80-100); MEAN PLATELET VOLUME 9.6 fL (9.2-13.0); MONOCYTES ABSOLUTE 0.88 10/3/uL (0.21-1.20); NEUTROPHILS 75.2 %; NEUTROPHILS ABSOLUTE 6.65 10/3/uL (2.02-8.40); PLATELET COUNT 324 10/3/uL (150-400); RBC DISTRIBUTION WIDTH 15.6 % (12.0-16.0); RED CELL COUNT 3.41 10/6/uL (4.7-6.1); WHITE BLOOD CELLS 8.8 10/3/uL (4.5-10.5)
[2016-06-30 06:53] LABS: MANUAL DIFF NO %
[2016-06-30 07:07] LABS: CALCIUM, SERUM 8.7 MG/DL (8.5-10.4); CHLORIDE, SERUM 100 MMOL/L (96-112); CO2 (CARBON DIOXIDE) 24 MMOL/L (24-34); CPK 16 U/L (0-200); CREATININE 0.72 MG/DL (0.70-1.30); GFR AFRICAN AMERICAN 106 ML/MIN (>=60); GFR NON AFRICAN AMERICAN 91 ML/MIN (>=60); POTASSIUM, SERUM 3.8 MMOL/L (3.5-5.3); SODIUM, SERUM 134 MMOL/L (135-148); TROPONIN I <0.02 NG/ML (<0.05)
[2016-06-30 07:08] LABS: BUN (BLOOD UREA NITROGEN) 11 MG/DL (6-23); CK-MB < 0.5 NG/ML; GLUCOSE, SERUM 200 MG/DL (60-99)
[2016-06-30 20:57] LABS: CPK 24 U/L (0-200); TROPONIN I 0.02 NG/ML (<0.05)
[2016-06-30 21:00] LABS: CK-MB 0.9 NG/ML
[2016-07-01 05:21] LABS: BUN (BLOOD UREA NITROGEN) 11 MG/DL (6-23); CALCIUM, SERUM 8.9 MG/DL (8.5-10.4); CHLORIDE, SERUM 102 MMOL/L (96-112); CO2 (CARBON DIOXIDE) 26 MMOL/L (24-34); CREATININE 0.76 MG/DL (0.70-1.30); GFR AFRICAN AMERICAN 103 ML/MIN (>=60); GFR NON AFRICAN AMERICAN 89 ML/MIN (>=60); GLUCOSE, SERUM 200 MG/DL (60-99); SODIUM, SERUM 135 MMOL/L (135-148)
[2016-07-01 06:00] LABS: BASOPHILS 0.3 %; BASOPHILS ABSOLUTE 0.03 10/3/uL (0.0-0.16); EOSINOPHILS 1.1 %; HEMATOCRIT 27.7 % (40.0-51.0); HEMOGLOBIN 9.2 g/dL (13.6-17.8); IMMATURE GRANULOCYTES 1.2 %; IMMATURE GRANULOCYTES ABSOLUTE 0.11 10/3/uL (0.0-0.11); LYMPHOCYTES 16.2 %; MEAN CORPUS HGB CONC 33.2 g/dL (32.0-36.0); MEAN CORPUSCULAR HEMOGLOB 26.5 pg (26.0-34.0); MEAN CORPUSCULAR VOLUME 79.8 fL (80-100); MEAN PLATELET VOLUME 9.2 fL (9.2-13.0); MONOCYTES 8.2 %; MONOCYTES ABSOLUTE 0.76 10/3/uL (0.21-1.20); NEUTROPHILS ABSOLUTE 6.76 10/3/uL (2.02-8.40); PLATELET COUNT 389 10/3/uL (150-400); RBC DISTRIBUTION WIDTH 15.5 % (12.0-16.0); RED CELL COUNT 3.47 10/6/uL (4.7-6.1); WHITE BLOOD CELLS 9.3 10/3/uL (4.5-10.5)
[2016-07-01 06:02] LABS: MANUAL DIFF NO %
[2016-07-03 06:33] LABS: CALCIUM, SERUM 9.6 MG/DL (8.5-10.4); CHLORIDE, SERUM 105 MMOL/L (96-112); CO2 (CARBON DIOXIDE) 26 MMOL/L (24-34); CREATININE 0.83 MG/DL (0.70-1.30); GFR AFRICAN AMERICAN 100 ML/MIN (>=60); GFR NON AFRICAN AMERICAN 86 ML/MIN (>=60); GLUCOSE, SERUM 232 MG/DL (60-99); POTASSIUM, SERUM 3.9 MMOL/L (3.5-5.3); SODIUM, SERUM 139 MMOL/L (135-148)
[2016-07-03 06:34] LABS: BUN (BLOOD UREA NITROGEN) 16 MG/DL (6-23)
[2016-07-04] MEDS ORDERED: SYN.15 PO (09:47)
[2016-07-04] MEDS ORDERED: LOP50 PO (09:47)
[2016-07-04] MEDS ORDERED: PROBIOTIC PEG (09:48)
== END 2016-07-04 11:57 | disposition home health service (06) | DRG 853 ==
LOC: ER 12:57 → 2SO 20:18 → SDC/OF 06-30 09:57 → 2SO 06-30 15:55
PROVIDERS: Emergency Medicine; Internal Medicine; Nurse Practitioner Family; Thoracic Surgery (Cardiothoracic Vascular Surgery)
PROC: 5A1221Z Performance of Cardiac Output, Continuous (ICD-10-PCS; 2016-06-30)
PROC: 0W9D0ZZ Drainage of Pericardial Cavity, Open Approach (ICD-10-PCS; principal; 2016-06-30 11:15)
DX: A41.9 Sepsis, unspecified organism (principal); J18.9 Pneumonia, unspecified organism; I31.4 Cardiac tamponade; J69.0 Pneumonitis due to inhalation of food and vomit; N17.9 Acute kidney failure, unspecified; E87.5 Hyperkalemia; I48.0 Paroxysmal atrial fibrillation; E87.1 Hypo-osmolality and hyponatremia; R13.12 Dysphagia, oropharyngeal phase; C02.9 Malignant neoplasm of tongue, unspecified; E11.9 Type 2 diabetes mellitus without complications; E86.0 Dehydration; R19.7 Diarrhea, unspecified; E78.5 Hyperlipidemia, unspecified; J44.9 Chronic obstructive pulmonary disease, unspecified; E03.9 Hypothyroidism, unspecified; D64.9 Anemia, unspecified; Z86.73 Personal history of transient ischemic attack (TIA), and cerebral infarction without residual deficits; Z80.0 Family history of malignant neoplasm of digestive organs; Z98.890 Other specified postprocedural states; Z82.49 Family history of ischemic heart disease and other diseases of the circulatory system; Z80.42 Family history of malignant neoplasm of prostate; Z85.21 Personal history of malignant neoplasm of larynx; Z92.21 Personal history of antineoplastic chemotherapy; Z92.3 Personal history of irradiation
CPT/HCPCS: 36415; 71020; 71275; 72100; 80048; 80053; 81001; 82550; 82553; 82570; 82607; 82728; 82746; 82962; 83036; 83540; 83550; 83605; 83735; 83935; 84134; 84145; 84300; 84439; 84443; 84484; 85025; 85610; 85730; 86850; 86900; 86901; 86920; 87015; 87040; 87045; 87046; 87046-59; 87070; 87075; 87077; 87102; 87116; 87186; 87205; 87328; 87329; 87449; 87493; 87493-59; 87899; 87899-59; 88112; 88305; 92610-GN; 93005; 93306-PO; 93308; 94640; 97161-GP; 99285; A9270-GY; G8978-CK-GP; G8979-CJ-GP; G8980-CJ-GP; G8996-CN-GN; G8997-CN-GN; G8998-CN-GN; J0610; J0690; J0692; J1170; J2250; J2370; J2405; J2710; J2795; J3010; J3370; J3475; Q9967

== ENCOUNTER 2016-07-16 16:43 | Inpatient (IN) | payer MEDICARE, OTHER ==
--- NOTE | ~2016-07-16 | DS ---
Discharge Summary [facility] [address] [place]. [address] NAME: SOM KAISER : 40 STATUS : DIS IN PAT#: [id number] AGE: 75 ADM/REG DATE : 07/17/16 MR#: [id number] REPORT SERV DATE: 07/18/16 DICTATED BY: ANTONY MCNALLY DATE: 07/17/16 REPORT STATUS : Draft TRANSCRIBED BY: MODL DATE: 07/17/16 ADMISSION DATE: 07/17/2016 DISCHARGE DATE: 07/17/2016 DISCHARGE DIAGNOSES: 1. Recurrent pneumonia, possible aspiration. 2. Dehydration. 3. Squamous cell oral cancer, completed chemo and radiation. 4. Mild sacral decubitus. 5. Diabetes mellitus type 2. 6. Chronic obstructive pulmonary disease. 7. History of pericardial effusion. IMAGIN. Chest x-ray, 07/16/2016; continued subsegmental atelectasis in the left lung base. 2. Chest x-ray, 07/16/2016; impression, lungs suggest underlying clinical COPD. Evidence for prior granulomatous exposure. Bibasilar atelectasis changes and some pleural effusion. There are scattered nodularities demonstrated on recent 06/27/2016 CTA. LABORATORY DATA: WBCs 9.6, hemoglobin 9.3, hematocrit 28.1, platelet count is 400, procalcitonin 0.05. Sodium is 132, potassium is 4.0, chloride 95, CO2 is 29, BUN is 18, creatinine is 0.88, glucose is 110, calcium is 8.7, magnesium is 1.7. Total protein is 6.2, albumin is 2.3, globulin is 3.9, total bilirubin is 1.7, alkaline phos is 61, ALT is 11, AST is 11. COURSE AT HOSPITAL STAY: Please refer to history and physical dictated by Dr. Edmund Jeter on 07/16/2016 for complete admission details. This patient is a 75-year-old male, who presented to [facility]'s Emergency Room with complaints of increased shortness of breath. The patient does present with a history of squamous cell carcinoma of the tongue diagnosed in 2012. The patient has completed chemotherapy and radiation. He is under the care of Dr. Arzate and Dr. Patterson. The patient did undergo multiple resections under the care of Dr. Jin. The patient had previously been admitted in 05/2016 and 06/2016 for bilateral pneumonia and had been previously on an extensive antibiotics. The patient has also developed a pericardial effusion for which he has undergone a pericardial window on 06/30/2016. 1. Recurrent pneumonia, possibly aspiration. As noted above, the patient had previously been admitted for pneumonia on 06/02/2016 and 06/27/2016. From that time, he was on antibiotics, which he had completed 8 cycles. The patient was placed on Levaquin and Flagyl this admission. Blood and sputum cultures were obtained. Imaging as noted above. 2. Dehydration. The patient stated he had decreased PEG tube feedings due to nausea. The patient was placed on IV fluids upon admission. Nutrition consult was also obtained. Recommendations were noted for patient; Jevity 1.2 full strength 30 mL an hour, advance 10 mL every eight hours, a goal rate of 90, 30 mL free water every four hours. The patient and stated that he uses bolus feeds at home. The patient will be admitted Discharge Summary [address] [place]. [address] NAME: SOM KAISER : 40 STATUS : DIS IN PAT#: [id number] AGE: 75 ADM/REG DATE : 07/17/16 MR#: [id number] REPORT SERV DATE: 07/18/16 DICTATED BY: ANTONY MCNALLY DATE: 07/17/16 REPORT STATUS : Draft TRANSCRIBED BY: KHANG DATE: 07/17/16 to hospice at that time, continuous feeds will be initiated at home. 3. Squamous cell carcinoma at that time and completed radiation chemotherapy. Per the patient and family's request, [facility] has been chosen. The patient and have met with Hospice, have agreed to discharge home this evening. Hospice will assume care at this time. They will continue antibiotics as well as tube feedings. 4. Mild sacral decubitus. Wound Care was consulted to see patient regarding decubitus ulcer on the sacral area. Per their recommendations, Nystatin powder to be used in area for yeast infection. A sacral border was placed for the patient, to be changed every day or p.r.n. for soiled area. This will be again continued with hospice upon discharge. 5. Diabetes mellitus type 2. The patient's blood sugar has remained stable during his stay. At this time, blood glucose is 121. The patient was initially placed on a sliding scale insulin #1 and continued on his home medications. Again, hospice will assume medications upon discharge. 6. Chronic obstructive pulmonary disease. The patient does present with increased shortness of breath at this time. The patient is on room air. O2 saturation is 96%. DuoNebs were initiated upon admission. This will continue with hospice. 7. History of pericardial effusion, 06/2016. DISCHARGE PLANNING: The patient and spouse have requested to be discharged home with hospice, per their choice, [facility]. We will admit the patient. The patient did request to be placed as a DNR. Form was signed and placed on patient's chart. Discharge medications will be per [facility]. This discharge took greater than 45 minutes due to collaboration with hospice and case management social worker as well as family members. DICTATED BY: Evita Crow NP DICTATED FOR: Aarti Almanza/KHANG Evita Crow NP Antony Mcnally M.D. / [id number] CC: Aarti Almanza MD
--- NOTE | ~2016-07-16 | HP ---
History And Physical [address] [place]. [address] NAME: SOM KAISER : 40 STATUS : ADM Caitlin PAT#: [id number] AGE: 75 ADM/REG DATE : 07/16/16 MR#: [id number] REPORT SERV DATE: 07/16/16 DICTATED BY: GEORGE GURROLA DATE: 07/16/16 REPORT STATUS : Draft TRANSCRIBED BY: MODL DATE: 07/16/16 DATE OF ADMISSION: 07/16/2016 CHIEF COMPLAINT: A 75-year-old male with chronic dysphagia secondary to extensive squamous cell carcinoma of the tongue with resection, now presenting with possible aspiration, recurrent pneumonia, and hypotension. HISTORY OF PRESENTING ILLNESS: The patient's history was obtained through careful interview with the patient, , and two daughters, coupled with review of [facility] medical records. The patient first developed squamous cell carcinoma of the tongue in 2012. He has undergone multiple resections under the care of Dr. Jin and has also had extensive radiation therapy under the care Dr. Arzate. Most recently, he had to have another resection of recurrent cancer in 06/2016. Because of dysphagia related to the tongue cancer. He has had a PEG tube placed and there is concern about aspiration risk. Earlier in 05/2016 and 06/2016, the patient became quite ill from bilateral pneumonia and had to be on an extended course of antibiotics for this. He also developed a pericardial effusion that was symptomatic and required pericardial window on 06/30/2016. The patient did stabilize from these infections and medical complications. Was able to be discharged recently on 07/04/2016 back home. When he returned home, he had completed all hospital antibiotics and did not have to return home on any specific antibiotic course. He has been doing well for at least a week, but then about three days ago, became weak, felt dehydrated with orthostasis and lightheadedness. Then, over the last several days, he has had increasing shortness of breath characterized by dyspnea on exertion to the point where he cannot even take 10 steps without being completely winded. He has also had an increasing cough productive of a green sputum, but no blood in it. Yesterday, he developed fevers, chills, measured up to 100.1. He has had nausea, but no vomiting. He has had significant reflux symptoms on and off. He did develop some chest discomfort over the last few days, exacerbated by coughing. It seems to have improved today. It is about 4/10 severity, sharp, in the middle of his chest. He has had chronic back pain since he was 17 years old, unchanged from baseline though. Also, over the last week, he has had some increasing "yeast" infection or irritation, itchiness, and redness to his groin area with also a sore and a small ulcer developing over his backside. No diarrhea. Since the beginning of his cancer, he has gone from 240 pounds down to 160 History And Physical [place] [address] [facility] [place]. [address] NAME: SOM KAISER : 40 STATUS : ADM Caitlin PAT#: [id number] AGE: 75 ADM/REG DATE : 07/16/16 MR#: [id number] REPORT SERV DATE: 07/16/16 DICTATED BY: GEORGE GURROLA DATE: 07/16/16 REPORT STATUS : Draft TRANSCRIBED BY: KHANG DATE: 07/16/16 pounds. REVIEW OF SYSTEMS: Otherwise, a 14-point review of systems was obtained and was negative. PAST MEDICAL HISTORY: 1. Squamous cell carcinoma of the tongue as mentioned in the HPI, followed by Dr. Arzate, radiation oncologist, and Dr. Jin, Ear, Nose, and Throat physician. 2. Prostate cancer, 2004, status post brachytherapy. 3. Bilateral pneumonia, 06/2016. 4. Diabetes with maximum blood sugars 150 to 170. 5. Hypothyroidism. 6. Stroke, but with no deficit. 7. Elevated cholesterol. 8. Diastolic congestive heart failure. 9. Paroxysmal atrial fibrillation? followed by Dr. Estrada. 10.Hyponatremia chronically. 11.COPD. PAST SURGICAL HISTORY: 1. Multiple squamous cell carcinoma of the tongue resections, most recently in 04/2016. 2. PEG tube placement. 3. Left elbow surgery. 4. Right rotator cuff repair. 5. Pericardial window, 06/30/2016. 6. Cholecystectomy. ALLERGIES: NO KNOWN DRUG ALLERGIES. SOCIAL HISTORY: Quit smoking more than 40 years ago in 1975. No alcohol abuse. Lives in [place], [place]. Is . Has two daughters. 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 FAMILY HISTORY: Mother with diabetes. Father with prostate cancer and coronary artery disease. Sibling with colon cancer. CURRENT MEDICATIONS: Include Klonopin, Plavix 75 mg daily, Pepcid 20 mg twice a day, fenofibrate 160 mg at bedtime, Neurontin 200 mg twice a day, Synthroid 150 mcg daily, Glucophage 1000 mg twice a day, Lopressor 50 mg twice a day, multivitamin, Roxicodone p.r.n., Paxil 10 mg p.o. daily, Mucinex, Advil PM, probiotics. PHYSICAL EXAMINATION: VITAL SIGNS: Temperature 96.7, pulse 88, blood pressure 99/54, respiratory rate 18, and O2 saturation 93% on room air. GENERAL: Chronically ill-appearing male, but in no evidence of acute distress. HEENT: Pupils equal, round, and reactive to light. No conjunctival pallor. No scleral icterus. Nares are patent. Oropharynx is clear of obstruction. Dry mucous membranes. History And Physical [address] [address] NAME: SOM KAISER : 40 STATUS : ADM Caitlin PAT#: [id number] AGE: 75 ADM/REG DATE : 07/16/16 MR#: [id number] REPORT SERV DATE: 07/16/16 DICTATED BY: GEORGE GURROLA DATE: 07/16/16 REPORT STATUS : Draft TRANSCRIBED BY: KHANG DATE: 07/16/16 Obvious extensive deformity of the tongue and mouth secondary to radiation and surgeries. NECK: Trachea midline. No thyromegaly. LYMPH: No cervical lymphadenopathy. No supraclavicular lymphadenopathy. RESPIRATORY: The patient does have diminished breath sounds at the base of lungs with crackles. No overt rales. No labored respiratory effort though. CARDIOVASCULAR: Regular rate and rhythm. No murmurs, rubs, or gallops. No extremity edema is appreciated. ABDOMEN: Soft, nontender, nondistended. Normal bowel sounds auscultated throughout. No hepatosplenomegaly. DERMATOLOGICAL: The patient's groin exam does suggest a yeast infection with irritation and a patchy red rash throughout, but with no heat. Only minimally tender to touch. There is also slight ulceration developing around the sacrum, but without any heat, tenderness, or purulent drainage. EXTREMITIES: Otherwise, warm and dry extremities. No pallor. No cyanosis. There is tenting of the skin to suggest fairly significant dehydration. PSYCHIATRIC: Normal affect. Good mood. Alert and oriented x3. LABORATORY DATA: White blood cell count 15.2, hemoglobin 11, hematocrit 32, platelets 566. Sodium 127, potassium 4.9, chloride 89, bicarb 34, BUN 24, creatinine 1.12 from baseline creatinine of 0.7, glucose 116. Troponin negative. Liver enzymes within normal limits. Urinalysis negative for infection. STUDIES: 1. Chest x-ray by my own evaluation shows basilar atelectasis versus pneumonia? There is a left pleural reaction effusion that seems more pronounced than previous x-rays. 2. EKG by my own evaluation shows sinus rhythm. No major abnormalities. ASSESSMENT AND PLAN: 1. Recurrent pneumonia. Check blood cultures. Check sputum culture. Place on IV Levaquin and Flagyl. Possible aspiration as the cause? Obtain Infectious Disease consult for antibiotic recommendations. 2. Dehydration with shock. Place on IV fluids. Obtain a Nutrition consult for recommendations regarding PEG tube water needs. 3. Groin yeast infection with mild sacral decubitus. Obtain a Wound Care consult. Try to turn q.2 hours while in bed. 4. Tongue cancer, squamous cell carcinoma, diagnosed in 2012 with multiple resections and radiation therapy. Most recent surgery with resection in 04/2016. 5. Diabetes, sliding scale insulin. 6. Chronic obstructive pulmonary disease. Place on Duo nebulizers. Mucomyst nebulizers. KPL/MODL George Gurrola M.D. History And Physical [address] [address] NAME: SOM KAISER : 40 STATUS : ADM Caitlin PAT#: [id number] AGE: 75 ADM/REG DATE : 07/16/16 MR#: [id number] REPORT SERV DATE: 07/16/16 DICTATED BY: GEORGE GURROLA DATE: 07/16/16 REPORT STATUS : Draft TRANSCRIBED BY: MODL DATE: 07/16/16 / [id number] CC: Aarti Almanza MD Dennis Thompson, M.D.
[2016-07-16 16:15] LABS: BASOPHILS 0.5 %; BASOPHILS ABSOLUTE 0.08 10/3/uL (0.0-0.16); EOSINOPHILS 2.8 %; EOSINOPHILS ABSOLUTE 0.43 10/3/uL (0.0-0.53); HEMOGLOBIN 10.7 g/dL (13.6-17.8); IMMATURE GRANULOCYTES 0.7 %; LYMPHOCYTES 21.5 %; LYMPHOCYTES ABSOLUTE 3.26 10/3/uL (0.67-4.30); MEAN CORPUS HGB CONC 33.8 g/dL (32.0-36.0); MEAN CORPUSCULAR VOLUME 80.1 fL (80-100); MEAN PLATELET VOLUME 9.7 fL (9.2-13.0); MONOCYTES 8.6 %; MONOCYTES ABSOLUTE 1.31 10/3/uL (0.21-1.20); NEUTROPHILS 65.9 %; NEUTROPHILS ABSOLUTE 9.98 10/3/uL (2.02-8.40); RBC DISTRIBUTION WIDTH 15.4 % (12.0-16.0); RED CELL COUNT 3.96 10/6/uL (4.7-6.1)
[2016-07-16 16:16] LABS: ER CBC TAT 0 Hrs 05 Mins; HEMATOCRIT 31.7 % (40.0-51.0); MANUAL DIFF NO %; PLATELET COUNT 566 10/3/uL (150-400); WHITE BLOOD CELLS 15.2 10/3/uL (4.5-10.5)
[2016-07-16 16:29] LABS: A/G RATIO 0.6 (0.7-1.9); ALKALINE PHOSPHATASE 76 U/L (45-117); BUN (BLOOD UREA NITROGEN) 24 MG/DL (6-23); CALCIUM, SERUM 9.5 MG/DL (8.5-10.4); CHLORIDE, SERUM 89 MMOL/L (96-112); CO2 (CARBON DIOXIDE) 34 MMOL/L (24-34); CREATININE 1.12 MG/DL (0.70-1.30); GFR AFRICAN AMERICAN 74 ML/MIN (>=60); GFR NON AFRICAN AMERICAN 64 ML/MIN (>=60); GLOBULIN 4.7 G/DL (2.5-4.1); GLUCOSE, SERUM 116 MG/DL (60-99); POTASSIUM, SERUM 4.9 MMOL/L (3.5-5.3); SGOT(AST) 15 U/L (5-40); SGPT(ALT) 15 U/L (5-65); SODIUM, SERUM 127 MMOL/L (135-148); TOTAL BILIRUBIN 0.9 MG/DL (0-1.2); TOTAL PROTEIN 7.7 G/DL (6.0-8.5)
[~2016-07-16 16:43] MED LIST changes: +ADVIL PM PEG; +ASAB PEG; +AUGMEN400S PEG; +GINSENG PEG; +GLUCOPHAGE1000 MG PEG; +KLONO1 PEG; +LEVOTHYROXIN175 MCG PEG; +LOFIB160 PEG; +LOP50 PO; +MUCINEX DM TABLET PEG; +MULTIVIT/MIN PEG; +NEUR100 PEG; +OXYCCODUDL PEG; +PAX10 PEG; +PEP20 PEG; +PLAVIX PEG; +PROBIOTIC PEG; +SILACE PEG; +SPIRO25 PEG; +SYN.15 PO; +ZOFRAN4 PEG
[2016-07-16 18:28] LABS: TROPONIN I <0.02 NG/ML (<0.05)
[2016-07-16 18:44] LABS: ASCORBIC ACID (UR NOT ORDER) 40 (NEG); BILIRUBIN, URINE NEGATIVE (NEG); ER URINALYSIS TAT 0 Hrs 10 Mins; KETONE, URINE NEGATIVE (NEG); LEUKOCYTE ESTERASE(NOT OR MOD (NEG); NITRITE (URINE) NEG (NEG); WBC (NOT ORDERED) (RFLEX) 4 (0-5)
[2016-07-17 06:01] LABS: BASOPHILS 0.4 %; BASOPHILS ABSOLUTE 0.04 10/3/uL (0.0-0.16); EOSINOPHILS 2.4 %; EOSINOPHILS ABSOLUTE 0.23 10/3/uL (0.0-0.53); HEMOGLOBIN 9.3 g/dL (13.6-17.8); IMMATURE GRANULOCYTES 0.4 %; IMMATURE GRANULOCYTES ABSOLUTE 0.04 10/3/uL (0.0-0.11); LYMPHOCYTES 17.5 %; LYMPHOCYTES ABSOLUTE 1.67 10/3/uL (0.67-4.30); MEAN CORPUS HGB CONC 33.1 g/dL (32.0-36.0); MEAN CORPUSCULAR HEMOGLOB 26.6 pg (26.0-34.0); MEAN CORPUSCULAR VOLUME 80.5 fL (80-100); MONOCYTES ABSOLUTE 1.34 10/3/uL (0.21-1.20); NEUTROPHILS 65.3 %; NEUTROPHILS ABSOLUTE 6.25 10/3/uL (2.02-8.40); PLATELET COUNT 400 10/3/uL (150-400); RBC DISTRIBUTION WIDTH 15.3 % (12.0-16.0); RED CELL COUNT 3.49 10/6/uL (4.7-6.1); WHITE BLOOD CELLS 9.6 10/3/uL (4.5-10.5)
[2016-07-17 06:05] LABS: HEMATOCRIT 28.1 % (40.0-51.0); INTERNATIONAL NORMAL RATI 1.4 UNITS (-); MANUAL DIFF NO %; PARTIAL THROMBO TIME 47.8 SEC (22.5-37.2); PROTIME (NOT ORD) 16.7 SEC (12.0-14.5)
[2016-07-17 06:25] LABS: A/G RATIO 0.6 (0.7-1.9); ALBUMIN 2.3 G/DL (3.5-5.0); ALKALINE PHOSPHATASE 61 U/L (45-117); BUN (BLOOD UREA NITROGEN) 18 MG/DL (6-23); CALCIUM, SERUM 8.7 MG/DL (8.5-10.4); CHLORIDE, SERUM 95 MMOL/L (96-112); CO2 (CARBON DIOXIDE) 29 MMOL/L (24-34); CREATININE 0.88 MG/DL (0.70-1.30); GFR AFRICAN AMERICAN 97 ML/MIN (>=60); GFR NON AFRICAN AMERICAN 84 ML/MIN (>=60); GLOBULIN 3.9 G/DL (2.5-4.1); GLUCOSE, SERUM 110 MG/DL (60-99); SGOT(AST) 11 U/L (5-40); SGPT(ALT) 11 U/L (5-65); SODIUM, SERUM 132 MMOL/L (135-148); TOTAL BILIRUBIN 1.7 MG/DL (0-1.2); TOTAL PROTEIN 6.2 G/DL (6.0-8.5); ULTRASENSITIVE TSH 0.079 MCIU/ML (0.358-3.740)
[2016-07-17 07:03] LABS: PROCALCITONIN 0.05 ng/mL (<0.5)
[2016-07-17] MEDS ORDERED: GGDM5ML PO (16:35)
[2016-07-17] MEDS ORDERED: GLUCPH PO (16:36)
[2016-07-17] MEDS ORDERED: NYSTATPOW TOP (16:38)
[2016-07-17] MEDS ORDERED: LEVAQUIN750 MG PO (16:39)
[2016-07-17] MEDS ORDERED: ATV1 PO (16:39)
[2016-07-17] MEDS ORDERED: DUONEB INH (16:39)
[2016-07-17] MEDS ORDERED: ALBUTEROL5 INH (16:41)
== END 2016-07-17 16:54 | disposition hospice, home (50) | DRG 179 ==
LOC: ER 16:43 → 4EA 19:47
PROVIDERS: Emergency Medicine; Hospitalist
DX: J69.0 Pneumonitis due to inhalation of food and vomit (principal); L89.159 Pressure ulcer of sacral region, unspecified stage; E86.0 Dehydration; J44.9 Chronic obstructive pulmonary disease, unspecified; E11.9 Type 2 diabetes mellitus without complications; C02.9 Malignant neoplasm of tongue, unspecified
CPT/HCPCS: 71010; 71020; 80053; 81001; 82962; 83735; 84145; 84443; 84484; 85025; 85610; 85730; 87040; 87070; 87086; 87205; 87449; 93005; 94640; 96372; 99285; A9270-GY; J1956; J3475